=== PATIENT | female | born 1955 | race Caucasian/White ===

== ENCOUNTER 2022-07-13 15:52 | Emergency (ER) | payer OTHER ==
[~2022-07-13] VITALS: Ht 157.5 cm; Wt 74.8 kg
[2022-07-13] MEDS ORDERED: ROSUVASTATIN CA20 MG PO (17:25)
[2022-07-13] MEDS ORDERED: METFORMIN HCL500 M1 PO (17:26)
[2022-07-13] MEDS ORDERED: DILTIAZEM ER300 MG PO (17:26)
== END 2022-07-13 20:36 | disposition home or self-care (01) ==
LOC: ER 15:52
DX: R51.9 Headache, unspecified (principal)